=== PATIENT | female | born 1980 | race Caucasian/White ===

== ENCOUNTER 2020-02-07 15:48 | Emergency (ER) | payer OTHER, SELFPAY ==
[2020-02-07 15:57] VITALS: BP 154/85; PULSE 99; RESP 17; TEMP 36.7; O2SAT 100
--- NOTE | 2020-02-07 16:10 | ED.UPPEXIN ---
HPI - Extremity Injury (Upper) General Chief Complaint: Extremity Injury, Upper Stated Complaint: right shoulder pain Time Seen by Provider: 02/07/20 15:57 Source: patient Mode of arrival: ambulatory Limitations: no limitations History of Present Illness HPI narrative: Patient is a 39-year-old female who presents with right shoulder pain noting that she has history of rotator cuff tear is attempting to get surgery however is been refused due to her obesity patient notes moderate aching pain throughout the right rotator cuff musculature worse with any activity or movement patient denies new injury or trauma Related Data Allergies Allergy/AdvReac Type Severity Reaction Status Date / Time Sulfa (Sulfonamide Allergy Unknown Unknown Verified 02/07/20 16:03 Antibiotics) Review of Systems Review of Systems: All systems reviewed & are unremarkable except as noted in HPI and below PMFSH Family History Family History (Updated 06/03/18 @ 10:37 by DOCTOR UNKNOWN) Other Cerebrovascular accident Diabetes mellitus Family history of cardiovascular disease Family history of coronary artery disease Family history of malignant neoplasm of cervix Family history of renal cell carcinoma Hypertension Social History Social History Smoking status: Never smoker Alcohol intake: current Gender identity (if verbalized by the patient): Female Exam Narrative: Exam Narrative: GENERAL: Well-appearing, well-nourished, and in no acute distress. HEAD: Normocephalic, atraumatic. EYES: PERRLA and EOMI. ENT: Nares clear, no rhinorrhea or epistaxis. Mucous membranes moist. CHEST: Clear to auscultation. No respiratory distress. No wheezes rales or rhonchi HEART: Regular rate and rhythm. No murmur heard. Normal peripheral pulses. EXTREMITIES: Tenderness of the right rotator cuff musculature no deformities SKIN: Warm, dry, no rash. NEURO: No focal deficits. Alert and oriented x3. Neurovascularly intact. Capillary refill less than 2 seconds PSYCH: Normal mood and affect. Course Course Emergency Course: Patient in the room in no distress aware of case findings treatment plan and diagnosis agreeing to follow-up as directed Vital Signs Vital signs: Vital Signs Temperature 98.0 F 02/07/20 15:57 Pulse Rate 99 02/07/20 15:57 Respiratory Rate 17 02/07/20 15:57 Blood Pressure 154/85 H 02/07/20 15:57 Pulse Oximetry 100 02/07/20 15:57 Temperature 98.0 F 02/07/20 15:57 Pulse Rate 99 02/07/20 15:57 Respiratory Rate 17 02/07/20 15:57 Blood Pressure 154/85 H 02/07/20 15:57 Pulse Oximetry 100 02/07/20 15:57 MDM - Extremity Injury (Upper) MDM Narrative Medical decision making narrative: Patients injury or pain is consistent with musculoskeletal etiology. No signs of neurological or vascular compromise on exam. Compartments and tisues are soft without signs of compartment syndrome. Pain is felt appropriate for further evaluation on an outpatient basis. Discharge Plan Discharge Clinical Impression: Acute pain of right shoulder Patient Disposition: Home, Self-Care Condition: Stable Instructions: Antibiotic Form, Rotator Cuff Injury (ED) Additional Instructions: Follow-up with orthopedic surgery first thing tomorrow. Go to ER for shortness of breath, difficulty breathing, chest pain, fever/chills, weakness, nauseau/vomitting, etc. or any other concerns. Take any prescribed medications as directed. If you do not have a drug allergy to tylenol or motrin and can tolerate it then take tylenol or motrin as needed for discomfort/pain. Prescriptions: New meloxicam 15 mg tablet 15 mg PO ONCE Qty: 7 RF: 0 orphenadrine citrate 100 mg tablet extended release 100 mg PO Q12H Qty: 10 RF: 0 Follow-up/Referrals: Monika,Laith Thomas MD [Primary Care Provider] -
[2020-02-07] MEDS: KETOROLAC (*BKC) 60 MG/2 ML VIAL IM (16:33)
[2020-02-07] MEDS: DIAZEPAM 5 MG TABLET PO (16:33)
== END 2020-02-07 16:40 | disposition home or self-care (01) ==
PROVIDERS: Emergency Provider Emergency Medicine; PCP Internal Medicine
DX: M25.511 Pain in right shoulder (principal)
CPT/HCPCS: 96372; 99283; A9270; J1885

== ENCOUNTER 2021-07-30 13:13 | Outpatient (CLI) | payer OTHER, MEDICAID, SELFPAY ==
--- NOTE | ~2021-07-30 | MMUS_ITS ---
EXAMINATION: MM diagnostic anthony BI w ezny, US breast BI limited HISTORY: Palpable lumps in the upper outer quadrant of the left breast and upper inner quadrant of th e right breast TECHNIQUE: Craniocaudal, mediolateral, and mediolateral oblique 3-D tomosynthesis images of the bryan ts were performed and synthetic 2-D images were generated. CAD analysis was submitted and interpreted . High resolution limited bilateral breast ultrasound was performed. COMPARISON: 12/15/2018 BREAST PARENCHYMAL COMPOSITION: There are scattered areas of fibroglandular density. FINDINGS: MAMMOGRAPHIC FINDINGS: Left breast: There is an approximately 3.0 x 2.1 cm irregular high density mass spiculated and indist inct margins in the posterior third of the upper outer quadrant of the breast at the 2:00 location 10 cm from the nipple corresponding to the palpable abnormality of concern. No suspicious calcification is identified. Right breast: There is no evidence of suspicious mass, calcification, or architectural distortion to suggest malignancy. There has been no suspicious interval change. No mammographic correlate is ident ified for the reported palpable abnormality of the right breast. ULTRASOUND: Left breast: There is a 3.0 x 1.9 cm oval, hypoechoic mass with microlobulated and indistinct margins at the 2:00 location 8 cm from the nipple corresponding to the palpable abnormality of concern. The mass demonstrates internal vascularity with no posterior features. At least two lymph nodes of the le ft axilla demonstrate eccentric cortical thickening. Right breast: No sonographic correlate is identified for the reported abnormality of concern in the r ight breast. IMPRESSION: 1. Suspicious right breast mass. Ultrasound-guided biopsy is recommended. 2. Indeterminate cortical thickening of left axillary lymph nodes. BI-RADS category 5, highly suggestive of malignancy. Reviewed, dictated and finalized at location A. IMPRESSION: 1. Suspicious right breast mass. Ultrasound-guided biopsy is recommended. 2. Indeterminate cortical thickening of left axillary lymph nodes. BI-RADS category 5, highly suggestive of malignancy.
== END 2021-07-30 13:14 | disposition home or self-care (01) ==
LOC: ANHIMG 13:16
PROVIDERS: PCP Internal Medicine; Visit Provider Obstetrics & Gynecology
DX: N63.21 Unspecified lump in the left breast, upper outer quadrant (principal)
CPT/HCPCS: 76642; 77062; 77066; G0279

== ENCOUNTER 2021-08-14 09:04 | Outpatient (CLI) | payer OTHER, MEDICAID, SELFPAY ==
--- NOTE | ~2021-08-14 | MMUS_ITS ---
US breast biopsy LT w image, MM post biopsy invasive LT EXAMINATION: US GUIDED NEEDLE BIOPSY WITH VAC UUM ASSISTANCE DATE: 08/14/2021 10:19 CDT INDICATION: Left breast mass seen on prior examination. Ultrasound-guided core biopsy is requested t o evaluate for malignancy. TECHNIQUE AND FINDINGS: The risks and potential benefits of the procedure were discussed with the patient, and written inform ed consent was obtained. After sterile preparation of the left breast, 1% lidocaine was utilized for local anesthesia. 1% lidocaine with epinephrine was used for deep anesthesia. A 10G vacuum-assisted biopsy gun needle was advanced through to the outer edge of the region of inter est from a lateral approach utilizing sonographic guidance. A total of three tissue core samples wer e obtained through the lesion. An Inrad tissue marker clip was then placed at the biopsy site. Hemos tasis was achieved. The patient tolerated procedure well and there was no evidence of immediate complication. The patien t was given verbal instructions partly is from the department. Left breast mammograms to document ti ssue marker clip placement. The tissue samples were submitted to surgical pathology for histologic an alysis. IMPRESSION: 1. Successful ultrasound-guided vacuum-assisted biopsy of left breast mass with tissue marker placem ent in the upper outer quadrant. Please refer to pathology report for histologic analysis. Reviewed, dictated and finalized at location A. IMPRESSION: 1. Successful ultrasound-guided vacuum-assisted biopsy of left breast mass wit h tissue marker placement in the upper outer quadrant. Please refer to patholog y report for histologic analysis.
== END 2021-08-14 09:05 | disposition home or self-care (01) ==
PROVIDERS: PCP Internal Medicine; Visit Provider Obstetrics & Gynecology
DX: C50.412 Malignant neoplasm of upper-outer quadrant of left female breast (principal)
CPT/HCPCS: 19083; 88305; 88342; A4648

== ENCOUNTER 2021-08-15 15:56 | Emergency (ER) | payer OTHER, MEDICAID, SELFPAY ==
[2021-08-15 16:02] VITALS: BP 140/74; PULSE 99; RESP 18; TEMP 36.4; O2SAT 99
[2021-08-15 17:34] VITALS: BP 129/79; PULSE 98; RESP 16; O2SAT 100
--- NOTE | 2021-08-15 18:23 | ED.SKABFB ---
HPI - Skin/Abscess/Foreign Bdy General Chief complaint: Skin/Abscess/Foreign Body Stated complaint: L BREAST BIOPSY- PAIN Time Seen by Provider: 08/15/21 17:28 Source: patient Mode of arrival: ambulatory Limitations: no limitations History of Present Illness HPI narrative: This is a 41 year old female who presents for evaluation of left breast pain s/p biopsy. Patient had core needle biopsy performed by radiologist yesterday. She reports pain at site of biopsy since her procedure. She denies fever, bleeding, readhess or drainage. She took ibuprofen yesterday with some relief but she also took tylenol with codeine without improvement. She has not taken anything for pain since 11 am this morning. Related Data Allergies Allergy/AdvReac Type Severity Reaction Status Date / Time Sulfa (Sulfonamide Allergy Unknown Unknown Verified 08/15/21 17:31 Antibiotics) Review of Systems Review of Systems: All systems reviewed & are unremarkable except as noted in HPI and below PMFSH Past Medical History Medical History (Updated 08/16/21 @ 00:00 by Background Dakathe) Left breast mass Family History Family History (Updated 06/03/18 @ 10:37 by DOCTOR UNKNOWN) Other Cerebrovascular accident Diabetes mellitus Family history of cardiovascular disease Family history of coronary artery disease Family history of malignant neoplasm of cervix Family history of renal cell carcinoma Hypertension Social History Social History Smoking status: Never smoker Alcohol intake: current Gender identity (if verbalized by the patient): Female Exam Const: General: no acute distress and alert Nutritional Appearance: obese Orientation/consciousness: patient oriented x3 Eyes: EOM: EOMs intact bilaterally Chest: Other: left breast at 2 o clock covered with clean bandage, no drainage, focal tenderness Resp: Effort & Inspection: normal respiratory effort Auscultation: clear to auscultation bilaterally Neuro: General: patient oriented x3, moves all extremities and CN's II-XI intact bilaterally Course Reevaluation(s) Reevaluation #1: I discussed with patient pain management. She reports her pain is better controlled. I spoke with our radiologist just recommends pain management and watch for signs of infection or bleeding. PAtient states she understands . Date: 08/15/21 Time: 19:11 Vital Signs Vital signs: Vital Signs Temperature 97.6 F 08/15/21 16:02 Pulse Rate 99 09/17/21 16:02 Respiratory Rate 18 08/15/21 16:02 Blood Pressure 140/74 08/15/21 16:02 Pulse Oximetry 99 08/15/21 16:02 Temperature 97.6 F 08/15/21 16:02 Pulse Rate 71 08/15/21 19:45 Respiratory Rate 18 08/15/21 19:45 Blood Pressure 129/84 08/15/21 19:45 Pulse Oximetry 96 08/15/21 19:45 Discharge Plan Discharge Clinical Impression: Pain of left breast, S/P breast biopsy Patient Disposition: Home, Self-Care Condition: Stable Instructions: Core Needle Breast Biopsy (DC) Additional Instructions: Please read discharge instruction. Continue to apply ice to left breast to help with pain. Watch for redness, fever, swelling or signs of an infection. Follow up with your primary care physician regarding your pain and results. Prescriptions: New naproxen 500 mg tablet,delayed release (DR/EC) 500 mg PO BID PRN (Reason: pain) Qty: 20 RF: 0 Follow-up/Referrals: Monika,Laith Thomas MD [Primary Care Provider] -
[2021-08-15] MEDS: KETOROLAC 30 MG/ML VIAL (*BKC) IV PUSH (18:36)
[2021-08-15 18:45] VITALS: BP 131/78; PULSE 104; RESP 20; O2SAT 100
[2021-08-15 19:45] VITALS: BP 129/84; PULSE 71; RESP 18; O2SAT 96
== END 2021-08-15 19:48 | disposition home or self-care (01) ==
PROVIDERS: Emergency Provider General Practice; PCP Internal Medicine
DX: G89.18 Other acute postprocedural pain (principal); N64.4 Mastodynia; Z98.890 Other specified postprocedural states
CPT/HCPCS: 96374; 99284; J1885